=== PATIENT | male | born 1975 | race Caucasian/White ===

== ENCOUNTER 2017-09-04 07:51 | Day surgery (SDC) | payer BC ==
[~2017-09-04 07:51] MED LIST: Buffered Lidocaine 0.9% SYRIN* 5 ML/SYR SYRINGE INTRADERM ONE
[2017-09-04] MEDS ORDERED: Buffered Lidocaine 0.9% SYRIN* 5 ML/SYR SYRINGE ONE (07:57)
[2017-09-04] MEDS ORDERED: Oxymetazoline 0.05% NASAL SPR* 15 ML BTL ONE ×2 (08:13→08:50)
[2017-09-04] MEDS ORDERED: Lidocaine 1% MPF wEPI 200,000* 30 ML SDV ONE (08:50)
[2017-09-04] MEDS ORDERED: Bacitracin OINTMENT* 1 TUBE ONE (08:50)
[2017-09-04] MEDS ORDERED: Lidocaine 4% TOPICAL* 50 ML TOP.SOLN ONE (08:50)
[2017-09-04] MEDS ORDERED: Succinylcholine* 20 MG/ML 10 ML VIAL ONE (09:16)
[2017-09-04] MEDS ORDERED: Propofol* 10 MG/ML 20 ML BTL IV PUSH ONE (09:16)
[2017-09-04] MEDS ORDERED: fentaNYL* 50 MCG/ML 2 ML VIAL (100 MCG VIAL) ONE (09:16)
[2017-09-04] MEDS ORDERED: DiMENhydriNATE IV* 50 MG/ML VIAL IV PUSH PRN (09:52)
[2017-09-04] MEDS ORDERED: oxyCODONE TAB* 5 MG TAB PO PRN (09:52)
[2017-09-04] MEDS ORDERED: fentaNYL* 50 MCG/ML 2 ML VIAL (100 MCG VIAL) IV PRN (09:52)
[2017-09-04] MEDS ORDERED: Lidocaine 2% PF * 5 ML VIAL ONE (10:09)
[2017-09-04 12:12] VITALS: BP 162/92
--- NOTE | 2017-09-04 19:19 | OP ---
OPERATIVE REPORT: DATE OF OPERATION: 09/04/17 DATE OF : 73 SURGEON: Lucas Haider MD KNITTER OPERATOR: None. ANESTHESIA: General. PRE-OP DIAGNOSES: Deviated nasal septum, chronic sinusitis affecting the bilateral frontal anterior ethmoid and maxillary sinuses. POST-OP DIAGNOSES: Deviated nasal septum, chronic sinusitis affecting the bilateral frontal anterior ethmoid and maxillary sinuses. OPERATIVE PROCEDURE: Septoplasty, bilateral frontal balloon sinuplasty, bilateral anterior ethmoidec alyson, and bilateral maxillary antrostomy. ESTIMATED BLOOD LOSS: 50 to 100 mL. SPECIMENS: Right and left sinus contents to Pathology. INDICATIONS: This is a 41-year-old male with longstanding allergic rhinitis, who has had problems wi th recurrent sinusitis for several years. He had preoperative CT scan, which showed bilateral sinus disease involving the frontal anterior ethmoid and maxillary sinuses as well as a significant deviate d septum. The decision was made to proceed with surgery since he was failing medical management. DESCRIPTION OF PROCEDURE: On 09/04/17, the patient was brought to the operating room. General anest hesia was induced and an oral endotracheal tube was placed. There was some difficulty initially placi ng the endotracheal tube because of relatively anterior larynx and the patient's obesity, but ultimat ted Anesthesia was able to intubate the patient successfully without any significant prolonged desatu ration. The patient was then draped and a time-out was performed. Both sides of the nose were decongested wi th pledgets containing Afrin and 4% lidocaine. After adequate time had been allotted for vasoconstri ction, the procedure was begun. 1% lidocaine with epinephrine was infiltrated into the roots of the middle turbinates, bodies of the middle turbinates, and the lateral nasal shelby. An attempt was made initially to use the balloon sinuplasty device to perform a left frontal sinusotomy. Multiple attemp ts failed to reveal good placement with the guidewire and so I moved over to the right side. The kevin dewire readily went into the right frontal sinus, which enabled passage of balloon. The balloon was deployed in standard fashion at multiple positions and the frontal sinus was irrigated with saline. Attention was then turned back to the left side, a few additional attempts were made, which were unsu ccessful to cannulate the frontal outflow tract and so conventional sinus surgical procedures were st arted. The middle turbinate was medialized. The uncinate process was taken down with a microdebride r. The natural ostium of the maxillary sinus was identified and enlarged using combination of straig ht and back- biting through-cutting instrumentation as well as the microdebrider. There was mucopuru lent debris in the sinus, which was irrigated out and suctioned clear. At this point, the ethmoid bu lla was then entered with a J curette. The anterior ethmoid air cells were exonerated using a combin ation of the microdebrider as well as an up-angled through-cutting forceps. With the uncinectomy per formed and the anterior ethmoidectomy, maxillary enterostomy was performed, the balloon sinuplasty de vice was brought back into the field. At this point, after a couple of attempts, successful cannulat ion of the left frontal sinus was obtained and the balloon unit was deployed. The frontal sinus was copiously irrigated with saline. Attention was then turned to the right nasal cavity, where the uncin ate process was taken down with the microdebrider. The natural osteotomy of the maxillary sinus was identified with the ball-tip probe and enlarged with the combination of through- cutting instrumentat ion as well as the microdebrider, and the anterior face of the ethmoid bulla was then entered with th e J curette and the anterior ethmoid air cells were exonerated with the microdebrider and up-angled t hrough-cutting instrumentation. At this point, attention was turned towards the septum, both sides of the septum were infiltrated wit h lidocaine with epinephrine. A left hemitransfixion incision was made. A left mucoperichondrial fl ap was then elevated. There was a relatively long laceration that occurred during flap elevation on the left side, as the flap was elevated over a sharp low-lying septal spur. The 15-blade was then us ed to make an incision through the quadrangular cartilage approximately 6 mm posterior to the caudal edge. This enabled exposure of the submucoperichondrial space on the right side and a mucoperichondr ial flap was elevated on that side. With the mucosa elevated bilaterally, a Destiney Swivel knife w as used to remove a large piece of deformed quadrangular cartilage. Inferiorly, the maxillary crest was quite displaced in the left nasal cavity forming the base of the spur. This was taken down with a 4-mm osteotome. More posteriorly, some of the bony septum was removed with double-action through-c utting scissor and Hesham. At this point, a piece of the removed septal cartilage was selected. It was flattened in a morselizer, it was placed back between the mucoperichondrial flaps and sutured in position with the quilting stitch. The left hemitransfixion incision was then closed and an addit ional quilting stitch was used to help reapproximate the edges of the linear laceration of the left m ucoperichondrial flap. Stammberger Sinu-Foam gel was then placed into the middle meatus bilaterally. The middle turbinates were bolgerized and Yosi Merocel packs were placed. These were secured to the cheeks with Mastisol and Steri-Strips. The patient was then returned to the care of the anesthe siologist, extubated, and delivered to the PACU in stable condition. [id number] #: [id number]
== END 2017-09-04 12:46 | disposition home or self-care (01) ==
LOC: OR 07:51
PROVIDERS: ATTEND Otolaryngology
DX: J34.2 Deviated nasal septum (principal); J32.0 Chronic maxillary sinusitis; J32.2 Chronic ethmoidal sinusitis; J32.1 Chronic frontal sinusitis; J45.909 Unspecified asthma, uncomplicated; M19.90 Unspecified osteoarthritis, unspecified site
CPT/HCPCS: 88305; A9270-GY; J0330; J2001; J2704; J3010